=== PATIENT | female | born 1950 | race Caucasian/White ===

== ENCOUNTER 2018-12-16 10:23 | Emergency (ER) | payer OTHER ==
[2018-12-16 10:31] VITALS: PULSE 68; TEMP 97.8; BMI 32.5
[2018-12-16] MEDS ORDERED: KETOROLAC TROMETHAMINE 60 MG/2 ML VIAL IM ONE (11:10)
[2018-12-16] MEDS ORDERED: KETOROLAC TROMETHAMINE 60 MG/2 ML VIAL ONE (11:16)
--- NOTE | 2018-12-16 11:27 | PDOC ---
History of Present Illness - General Chief Complaint: Pain, Acute Stated Complaint: LT KNEE PAIN Time Seen by Provider: 12/16/18 10:55 History Source: Patient Exam Limitations: Clinical Condition - History of Present Illness Initial Comments: 12/16/18 11:36 Patient with past medication of hypertension presented with complaint of one- week history of pain to left knee and distal portion of posterior thigh with swelling to left knee which has been worsening for the past week. Patient still her PCP yesterday for symptoms and was diagnosed with meloxicam and referral given for ultrasound of left lower extremity by patient came to the ED instead due to pain getting worse in unable to stand on left knee. Denies any trauma or injury to any. Denies tingling or numbness sensation. Denies chest pain, shortness of breath, dizziness. Patient reported mild tactile fever yesterday. Patient has not taken anything for fever today Is this a multiple visit Asthma Patient?: No Timing/Duration: 1 week Past History - Past Medical History Allergies/Adverse Reactions: Allergies Allergy/AdvReac Type Severity Reaction Status Date / Time No Known Allergies Allergy Verified 12/16/18 10:31 Home Medications: Ambulatory Orders Isoniazid 300 mg PO DAILY 12/16/18 Leg Brace [Knee Brace] 1 each [facility] DAILY #1 each 12/16/18 Losartan Potassium 25 mg PO DAILY 12/16/18 Methocarbamol [Robaxin -] 500 mg PO BID #14 tablet 12/16/18 Naproxen 500 mg PO BID PRN #20 tablet 12/16/18 COPD: No HTN: Yes - Immunization History Immunization Up to Date: No - Psycho Social/Smoking Cessation Hx Smoking History: Never smoked Have you smoked in the past 12 months: No Information on smoking cessation initiated: No Hx Alcohol Use: No Drug/Substance Use Hx: No Review of Systems - Review of Systems Able to Perform ROS?: Yes Is the patient limited Azeri proficient: No Constitutional: Yes: Fever (tactile fever). No: Malaise, Weakness HEENTM: No: Symptoms Reported, See HPI, Eye Pain, Blurred Vision, Tearing, Recent change in vision, Double Vision, Cataracts, Ear Pain, Ocular Prothesis, Ear Discharge, Nose Pain, Nose Congestion, Tinnitus, Nose Bleeding, Hearing Loss , Throat Pain, Throat Swelling, Mouth Pain, Dental Problems, Difficulty Swallowing, Mouth Swelling, Other Respiratory: No: Symptoms reported, See HPI, Cough, Orthopnea, Shortness of Breath, SOB with Exertion, SOB at Rest, Stridor, Wheezing, Productive cough, Hemoptysis, Other Cardiac (ROS): No: Symptoms Reported, See HPI, Chest Pain, Edema, Irregular Heart Rate, Lightheadedness, Palpitations, Syncope, Chest Tightness, Other ABD/GI: No: Nausea, Vomiting Musculoskeletal: Yes: Symptoms Reported, See HPI, Joint Pain (left posterior knee), Muscle Pain (left lower thigh and posterior knee) Integumentary: No: Symptoms Reported Neurological: No: Symptoms reported, Numbness, Paresthesia, Tingling All Other Systems: Reviewed and Negative *Physical Exam - Vital Signs Last Vital Signs Temp Pulse Resp BP Pulse Ox 97.8 F 68 16 184/91 H 98 12/16/18 10:27 12/16/18 10:27 12/16/18 10:27 12/16/18 10:27 12/16/18 10:27 - Physical Exam Comments: 12/16/18 11:28 GENERAL: Well developed, well nourished. Awake and alert. No acute distress. CARDIOVASCULAR: Regular rate and rhythm. No murmurs, rubs, or gallops. PULMONARY: No evidence of respiratory distress. Lungs clear to auscultation bilaterally. No wheezing, rales or rhonchi. ABDOMINAL: Soft. Non-tender. Non-distended. No rebound or guarding. No organomegaly. Normoactive bowel sounds MUSCULOSKELETAL : mild tenderness over posterior popliteal fossa. moderate tenderness to posterior distal thigh muscle of LLE. No bony deformities EXTREMITIES: No cyanosis. No clubbing. No edema. No calf tenderness. SKIN: Warm and dry. Normal capillary refill. No rashes. bruising or ecchymosis. NEUROLOGICAL: Alert, awake, appropriate. No motor deficits in the lower extremities. Gait is normal without ataxia. PSYCHIATRIC: Cooperative. Good eye contact. Appropriate mood and affect. General Appearance: Yes: Nourished, Appropriately Dressed, Apparent Distress, Mild Distress ED Treatment Course - RADIOLOGY Radiology Studies Ordered: Category Date Time Status KNEE 3 POS-LEFT [RAD] Stat Radiology 12/16/18 11:10 Ordered DUPLEX VASCUL US-1 LEG [US] Stat Ultrasound 12/16/18 11:06 Ordered Medical Decision Making - Medical Decision Making 12/16/18 11:39 Patient with past medication of hypertension presented with complaint of one- week history of pain to left knee and distal portion of posterior thigh with swelling to left knee which has been worsening for the past week. Patient still her PCP yesterday for symptoms and was diagnosed with meloxicam and referral given for ultrasound of left lower extremity by patient came to the ED instead due to pain getting worse in unable to stand on left knee. Denies any trauma or injury to any. Denies tingling or numbness sensation. Denies chest pain, shortness of breath, dizziness. Patient reported mild tactile fever yesterday. Patient has not taken anything for fever today Exam significant for mild tenderness to posterior popliteal fossa and distal aspect of posterior thigh muscle left lower extremity. Mild swelling to left knee. Negative anterior posterior drawer test of left knee. No calf muscle tenderness. Negative Homans sign. Lungs clear to auscultation bilateral. Patient in no acute respiratory distress Patient symptoms likely ankle and thigh sprain versus Horner's cyst versus less likely DVT. X-ray of left knee ordered to rule out acute pathology. Duplex ultrasound of left lower extremity ordered to rule out DVT. Toradol 60 mg IM ordered for pain. Treat based on imaging results 12/16/18 12:35 X-ray of left knee shows no acute pathology except mild suprapatellar swelling. Duplex ultrasound of left lower extremity shows no acute DVT of pathology. Patient symptoms likely knee sprain. Left knee wrapped with Troy bandage. Patient stable for discharge on naproxen as needed for pain and Robaxin. Muscle relaxer with advised to do hot compresses with orthopedics follow-up as needed. Patient stable for discharge Discharge - Discharge Information Problems reviewed: Yes Clinical Impression/Diagnosis: Posterior left knee pain Condition: Stable Disposition: HOME - Admission No - Additional Discharge Information Prescriptions: Leg Brace [Knee Brace] 1 each MC DAILY #1 each Methocarbamol [Robaxin -] 500 mg PO BID #14 tablet Naproxen 500 mg PO BID PRN #20 tablet PRN Reason: knee pain - Follow up/Referral Referrals: Peter Pa DO [Staff Physician] - - Patient Discharge Instructions Patient Printed Discharge Instructions: DI for Patellofemoral Pain Syndrome- Adult, DI for Knee Pain Additional Instructions: Your knee x-ray was normal. Your ultrasound of your leg shows no DVT. Symptoms likely caused by knee sprain. Take prescribed medication as needed for pain. Apply hot compress to need 2-3 times a day as needed for pain. Keep leg elevated for the next 2 days. No strenuous activity for the next 3 days. Follow-up referred to orthopedics if symptoms persist for more than 4 days - Post Discharge Activity Work/Back to School Note: Back to Work
[2018-12-16] MEDS ORDERED: METHOCARBAMOL 500 MG TABLET PO ONE (12:31)
[2018-12-16] MEDS ORDERED: METHOCARBAMOL 500 MG TABLET ONE (12:34)
[2018-12-16 12:51] VITALS: BP 165/83
== END 2018-12-16 12:52 | disposition home or self-care (01) ==
LOC: JERFT 10:23
PROC: 3E0233Z Introduction of Anti-inflammatory into Muscle, Percutaneous Approach (ICD-10-PCS; principal; 2018-12-16)
DX: M25.562 Pain in left knee (principal); I10 Essential (primary) hypertension; M25.462 Effusion, left knee
CPT/HCPCS: 73562-TC-LT-FY; 93971-TC; 99282-25

== ENCOUNTER 2022-01-03 04:15 | Day surgery (SDC) | payer OTHER ==
[2022-01-01 12:53] VITALS: BMI 32.5
[2022-01-03 11:15] VITALS: TEMP 98
[2022-01-03 11:48] VITALS: PULSE 62
[2022-01-03 11:58] VITALS: BP 135/69; RESP 12
== END 2022-01-03 11:59 | disposition home or self-care (01) ==
LOC: JASU-ENDO 04:15
PROVIDERS: ATTEND Internal Medicine Gastroenterology
PROC: 0DB78ZX Excision of Stomach, Pylorus, Via Natural or Artificial Opening Endoscopic, Diagnostic (ICD-10-PCS; 2022-01-03)
PROC: 0DB48ZX Excision of Esophagogastric Junction, Via Natural or Artificial Opening Endoscopic, Diagnostic (ICD-10-PCS; 2022-01-03)
PROC: 0DB98ZX Excision of Duodenum, Via Natural or Artificial Opening Endoscopic, Diagnostic (ICD-10-PCS; principal; 2022-01-03 11:00)
DX: K21.00 Gastro-esophageal reflux disease with esophagitis, without bleeding (principal); K29.50 Unspecified chronic gastritis without bleeding; K44.9 Diaphragmatic hernia without obstruction or gangrene; I10 Essential (primary) hypertension; Z87.19 Personal history of other diseases of the digestive system
CPT/HCPCS: 88305-TC; 88342-TC

== ENCOUNTER 2022-01-23 04:17 | Day surgery (SDC) | payer OTHER ==
[2022-01-21 16:43] VITALS: BMI 24.7
[2022-01-23 09:22] VITALS: TEMP 98
[2022-01-23 09:49] VITALS: RESP 10
[2022-01-23 13:09] VITALS: BP 113/67; PULSE 65
== END 2022-01-23 10:20 | disposition home or self-care (01) ==
LOC: JASU-ENDO 04:17
PROVIDERS: ATTEND Internal Medicine Gastroenterology
PROC: 0DJD8ZZ Inspection of Lower Intestinal Tract, Via Natural or Artificial Opening Endoscopic (ICD-10-PCS; principal; 2022-01-23 08:45)
DX: Z12.11 Encounter for screening for malignant neoplasm of colon (principal); K57.30 Diverticulosis of large intestine without perforation or abscess without bleeding; K64.8 Other hemorrhoids